=== PATIENT | female | born 1960 | race Caucasian/White ===

== ENCOUNTER 2018-05-24 11:11 | Emergency (ER) | payer OTHER, SELFPAY ==
[2018-05-24 11:57] LABS: Absolute Lymphocytes (CBC) 1.3 K/uL (0.7-4.9); Absolute Monocytes 0.5 K/uL (0.1-1.3); Absolute Neutrophil 4.6 K/uL (1.8-8.0); Basophils % 0.3 % (0-1.3); Eosinophils % 0.1 % (0-4.4); Hematocrit 35.8 % (36.0-45.0); Lymphocytes % 20.9 % (15.3-44.8); MCH 31.6 pg (27.0-35.0); MCV 93.1 fL (80-100); MPV 7.1 fL (7.6-11.3); Monocytes % 7.1 % (3.3-12.3); RBC Red Blood Cell Count 3.85 M/uL (3.86-4.86)
[2018-05-24 12:06] LABS: Protime INR 1.05
[2018-05-24] MEDS ORDERED: ONDANSETRON 4 MG (ODT) TAB ONE (12:10)
[2018-05-24] MEDS ORDERED: FAMOTIDINE 20 MG TAB ONE (12:10)
--- NOTE | 2018-05-24 12:48 | EKG ---
Test Date: 2018-05-24 Test Time: 12:10:59 Powder Coater: AYAN MEASUREMENT RESULTS: Intervals: Rate: 75 MA: 148 QRSD: 82 QT: 396 QTc: 442 Vulcan: P: 41 MA: 148 QRS: 61 T: 62 INTERPRETIVE STATEMENTS: Normal sinus rhythm with sinus arrhythmia Minimal voltage criteria for LVH, may be normal variant Borderline ECG No previous ECG available for comparison Electronically Signed On 05-24-18 12:47:14 SLIPMAN by Brayan Yi
[2018-05-24 12:49] LABS: ALT/SGPT 19 U/L (12-78); AST/SGOT 20 U/L (15-37); Albumin 3.7 g/dL (3.4-5.0); Alkaline Phosphatase 82 U/L (45-117); BUN Blood Urea Nitrogen 10 mg/dL (7-18); Bicarbonate 26 mmol/L (21-32); Bilirubin Direct 0.2 mg/dL (0-0.2); Bilirubin Total 0.6 mg/dL (0.2-1.0); Glucose Level 97 mg/dL (74-106); Lipase 79 U/L (73-393); Magnesium 1.8 mg/dL (1.8-2.4); Potassium 3.7 mmol/L (3.5-5.1); Protein, Total 6.9 g/dL (6.4-8.2); Sodium Level 142 mmol/L (136-145); Troponin I < 0.02 ng/mL (0.0-0.045)
--- NOTE | 2018-05-24 13:43 | ER ---
Nurse's Notes [facility] Name: Maria Victoria Justin Age: 58 yrs Sex: Female : 1960 Arrival Date: 05/24/2018 Time: 11:15 Bed 8 Private MD: Diagnosis: Nausea and vomiting;Adverse effect of other synthetic narcotics Presentation: 05/24 11:15 Presenting complaint: Patient states: " I took a bunch of pills last night in the [facility]. aj1 I had some Delta and tramadol, I threw up this morning and I hurt real bad and I feel weird. I don't know how much it was, but it was a handful." Patient reports abdominal pain and headache. States that she took these pills last night before she went to bed, but then was throwing up all night. Transition of care: patient was not received from another setting of care. Onset of symptoms was May 24, 2018. Risk Assessment: Do you want to hurt yourself or someone else? Patient reports no desire to harm self or others. Initial Sepsis Screen: Does the patient meet any 2 criteria? No. Patient's initial sepsis screen is negative. Does the patient have a suspected source of infection? No. Patient's initial sepsis screen is negative. Care prior to arrival: None. 11:15 Method Of Arrival: Law Enforcement aj1 11:15 Acuity: KISHAN 3 aj1 Triage Assessment: 11:25 General: Appears in no apparent distress. comfortable, Behavior is calm, cooperative, aj1 appropriate for age. Pain: Complains of pain in abdomen Pain currently is 6 out of 10 on a pain scale. Historical: - Allergies: 11:23 TETRACYCLINES; aj1 - Home Meds: 11:23 duloxetine oral oral [Active]; Trazodone Oral [Active]; Xanax Oral [Active]; Adderall aj1 XR Oral [Active]; Tramadol Oral [Active]; - PMHx: 11:23 PTSD; Bipolar disorder; Depression; aj1 - PSHx: 11:23 None; aj1 - Immunization history:: Flu vaccine is not up to date. - Social history:: Smoking status: Patient/guardian denies using tobacco. - Ebola Screening: : Patient denies travel to an Ebola-affected area in the 21 days before illness onset. Screenin:25 Abuse screen: Denies threats or abuse. Denies injuries from another. Nutritional aj1 screening: No deficits noted. Tuberculosis screening: No symptoms or risk factors identified. 14:21 Fall Risk None identified. aj1 Assessment: 11:25 General: Appears in no apparent distress. comfortable, Behavior is calm, cooperative, aj1 appropriate for age. Pain: Complains of pain in abdomen diffusely Pain does not radiate. Pain currently is 6 out of 10 on a pain scale. Quality of pain is described as aching, Pain began 1 day ago. Is continuous. Neuro: Level of Consciousness is awake, alert, obeys commands, Oriented to person, place, time, situation, Moves all extremities. Full function Speech is normal, Facial symmetry appears normal. Cardiovascular: Patient's skin is warm and dry. Respiratory: Airway is patent Respiratory effort is even, unlabored, Respiratory pattern is regular, symmetrical. GI: Abdomen is flat, non-distended, Bowel sounds present X 4 quads. Abd is soft and non tender X 4 quads. Reports lower abdominal pain, upper abdominal pain, nausea, vomiting. : No signs and/or symptoms were reported regarding the genitourinary system. EENT: No signs and/or symptoms were reported regarding the EENT system. Derm: No signs and/or symptoms reported regarding the dermatologic system. Skin is pink, warm \\T\\ dry. normal. Musculoskeletal: No signs and/or symptoms reported regarding the musculoskeletal system. Circulation, motion, and sensation intact. 12:00 Reassessment: Patient requests getting blood results back before attempting another IV aj1 stick. Notified CATHY Martinez. Order received to hold IV start, and give oral medications at this time. 12:33 Reassessment: Patient appears in no apparent distress at this time. No changes from aj1 previously documented assessment. Patient and/or family updated on plan of care and expected duration. Pain level reassessed. Patient is alert, oriented x 3, equal unlabored respirations, skin warm/dry/pink. 13:30 Reassessment: Patient appears in no apparent distress at this time. No changes from aj1 previously documented assessment. Patient and/or family updated on plan of care and expected duration. Pain level reassessed. Patient is alert, oriented x 3, equal unlabored respirations, skin warm/dry/pink. 14:20 Reassessment: Patient appears in no apparent distress at this time. No changes from aj1 previously documented assessment. Patient and/or family updated on plan of care and expected duration. Pain level reassessed. Patient is alert, oriented x 3, equal unlabored respirations, skin warm/dry/pink. Vital Signs: 11:25 BP 133 / 93; Pulse 88; Resp 18; Temp 98.7; Pulse Ox 99% on R/A; Weight 49.9 kg (R); aj1 Height 4 ft. 11 in. (149.86 cm) (R); Pain 6/10; 12:33 BP 126 / 80; Pulse 83; Resp 16; Pulse Ox 99% on R/A; aj1 13:30 BP 125 / 72; Pulse 75; Resp 16; Pulse Ox 100% on R/A; aj1 14:20 BP 116 / 82; Pulse 85; Resp 18; Pulse Ox 97% on R/A; aj1 11:25 Body Mass Index 22.22 (49.90 kg, 149.86 cm) aj1 ED Course: 11:15 Patient arrived in ED. aj1 11:17 Triage completed. aj1 11:20 Robert Nunez PA is PHCP. cp 11:20 Robert Luevano MD is Attending Physician. cp 11:21 Keyanna Uriostegui, HENNA is Primary Nurse. aj1 11:25 Arm band placed on Patient placed in an exam room, Patient Patient triaged in bed 8. aj1 11:25 Patient has correct armband on for positive identification. Bed in low position. Call aj1 light in reach. Side rails up X 1. PD at bedside. 11:25 No provider procedures requiring assistance completed. aj1 11:50 Initial lab(s) drawn, by tn, sent to lab. Missed attempt(s): 22 gauge in left jb1 antecubital area. 11:55 Missed attempt(s): 22 gauge in right forearm. Bleeding controlled, band aid applied, aj1 catheter tip intact. 12:00 Missed attempt(s): 22 gauge in right forearm. Bleeding controlled, band aid applied, aj1 catheter tip intact. 12:22 EKG done, by lead principal technical architect. reviewed by Robert MORGAN. at1 14:21 Patient did not have IV access during this emergency room visit. aj1 Administered Medications: 11:59 CANCELLED (Physician Discretion): Zofran 4 mg IVP once; over 2 minutes cp 11:59 CANCELLED (Physician Discretion): Pepcid 20 mg IVP once cp 12:06 Drug: Pepcid 20 mg Route: PO; aj1 14:19 Follow up: Response: No adverse reaction aj1 12:06 Drug: Zofran 4 mg Route: PO; aj1 14:19 Follow up: Response: No adverse reaction aj1 14:19 Not Given (Physician Discretion): NS 0.9% 500 ml IV at bolus once aj1 Outcome: 13:42 Discharge ordered by MD. cp 14:21 Discharged to Law Enforcement aj1 14:21 Condition: good 14:21 Discharge instructions given to patient, Instructed on discharge instructions, follow up and referral plans. Demonstrated understanding of instructions, follow-up care. 14:21 Patient left the ED. aj1 Signatures: Rivas Flores jb1 Keyanna Uriostegui RN RN aj1 Karma Rosenthal, ground instructor basic EKG Tat1 Robert Nunez PA PA cp
--- NOTE | 2018-05-24 13:43 | EDPHYS ---
Physician Documentation [facility] Name: Maria Victoria Justin Age: 58 yrs Sex: Female : 1960 Arrival Date: 05/24/2018 Time: 11:15 Bed 8 Private MD: ED Physician Robert Luevano HPI: 05/24 11:28 This 58 yrs old Female presents to ER via Law Enforcement with complaints of cp nausea/vomiting. 11:28 The patient presents to the emergency department after a known overdose, a result of cp recreational substance abuse. Context: Method: the patient has a confirmed or suspected ingestion, of narcotics, Time: last night, Extent: it is unknown what amount the patient ingested, handful, the OD/poisoning occurred at [facility], and was witnessed no one. 11:28 Associated signs and symptoms: Pertinent positives: nausea, vomiting, headache, cp Pertinent negatives: decreased level of consciousness, diarrhea. Severity of symptoms: in the emergency department the symptoms are unchanged. Historical: - Allergies: 11:23 TETRACYCLINES; aj1 - Home Meds: 11:23 duloxetine oral oral [Active]; Trazodone Oral [Active]; Xanax Oral [Active]; Adderall aj1 XR Oral [Active]; Tramadol Oral [Active]; - PMHx: 11:23 PTSD; Bipolar disorder; Depression; aj1 - PSHx: 11:23 None; aj1 - Immunization history:: Flu vaccine is not up to date. - Social history:: Smoking status: Patient/guardian denies using tobacco. - Ebola Screening: : Patient denies travel to an Ebola-affected area in the 21 days before illness onset. ROS: 11:30 Constitutional: Negative for body aches, chills, fever, poor PO intake. cp 11:30 Eyes: Negative for injury, pain, redness, and discharge. cp 11:30 ENT: Negative for drainage from ear(s), ear pain, sore throat, difficulty swallowing, difficulty handling secretions. 11:30 Cardiovascular: Negative for chest pain, edema, palpitations. 11:30 Respiratory: Negative for cough, shortness of breath, wheezing. 11:30 Abdomen/GI: Positive for abdominal pain, nausea, vomiting, Negative for diarrhea, constipation, black/tarry stool, rectal bleeding. 11:30 Skin: Negative for cellulitis, rash. 11:30 Neuro: Positive for headache. 11:30 Psych: Negative for suicide gesture, suicidal ideation. cp 11:30 All other systems are negative. cp Exam: 11:35 Constitutional: The patient appears in no acute distress, alert, awake, cp non-diaphoretic, non-toxic, well developed, well nourished. 11:35 Head/Face: Normocephalic, atraumatic. Eyes: Pupils equal round and reactive to light, cp extra-ocular motions intact. Lids and lashes normal. Conjunctiva and sclera are non-icteric and not injected. Cornea within normal limits. Periorbital areas with no swelling, redness, or edema. ENT: Nares patent. No nasal discharge, no septal abnormalities noted. Tympanic membranes are normal and external auditory canals are clear. Oropharynx with no redness, swelling, or masses, exudates, or evidence of obstruction, uvula midline. Mucous membranes moist. Chest/axilla: Normal chest wall appearance and motion. Nontender with no deformity. No lesions are appreciated. Cardiovascular: Regular rate and rhythm with a normal S1 and S2. No gallops, murmurs, or rubs. Normal PMI, no JVD. No pulse deficits. Respiratory: Lungs have equal breath sounds bilaterally, clear to auscultation and percussion. No rales, rhonchi or wheezes noted. No increased work of breathing, no retractions or nasal flaring. 11:35 Abdomen/GI: Inspection: abdomen appears normal, Bowel sounds: active, all quadrants, Palpation: soft, in all quadrants, mild abdominal tenderness, in all quadrants, rebound tenderness, is not appreciated, voluntary guarding, is not appreciated, involuntary guarding, is not appreciated. 11:35 Back: pain, is absent, ROM is normal. 11:35 Skin: cellulitis, is not appreciated, no rash present. 11:35 Neuro: Orientation: to person, place \T\ time. Mentation: is normal, Cerebellar function: is grossly normal, Motor: is normal, Sensation: is normal. 11:35 Psych: Affect is calm, Patient has no thoughts/intents to harm self or others. Judgement / Insight is normal. 12:18 ECG was reviewed by the Attending Physician. cp Vital Signs: 11:25 BP 133 / 93; Pulse 88; Resp 18; Temp 98.7; Pulse Ox 99% on R/A; Weight 49.9 kg (R); aj1 Height 4 ft. 11 in. (149.86 cm) (R); Pain 6/10; 12:33 BP 126 / 80; Pulse 83; Resp 16; Pulse Ox 99% on R/A; aj1 13:30 BP 125 / 72; Pulse 75; Resp 16; Pulse Ox 100% on R/A; aj1 14:20 BP 116 / 82; Pulse 85; Resp 18; Pulse Ox 97% on R/A; aj1 11:25 Body Mass Index 22.22 (49.90 kg, 149.86 cm) aj1 MDM: 11:20 Patient medically screened. cp 12:00 Differential diagnosis: over medication, overdose, suicide attempt. cp 13:40 Data reviewed: vital signs, nurses notes, lab test result(s), EKG, and as a result, I cp will discharge patient. 13:40 Test interpretation: by ED physician or midlevel provider: ECG. Counseling: I had a cp detailed discussion with the patient and/or guardian regarding: the historical points, exam findings, and any diagnostic results supporting the discharge/admit diagnosis, lab results, to return to the emergency department if symptoms worsen or persist or if there are any questions or concerns that arise at home. ED course: VSS. No vomiting observed in ED. Will discharge into custody of law enforcement for continued monitoring. 05/24 11:25 Order name: Basic Metabolic Panel; Complete Time: 12:54 cp 05/24 12:54 Interpretation: Normal except: CL 111. cp 05/24 11:25 Order name: CBC with Diff; Complete Time: 11:58 cp 05/24 11:58 Interpretation: Normal except: RBC 3.85; HCT 35.8; MPV 7.1. cp 05/24 11:25 Order name: Creatinine for Radiology; Complete Time: 12:32 cp 05/24 11:25 Order name: Hepatic Function; Complete Time: 12:54 cp 05/24 11:25 Order name: Lipase; Complete Time: 12:54 cp 05/24 11:25 Order name: Magnesium; Complete Time: 12:54 cp 05/24 11:25 Order name: Troponin I; Complete Time: 12:54 cp 05/24 12:55 Interpretation: Reviewed. 05/24 11:25 Order name: Tylenol Level; Complete Time: 12:54 cp 05/24 12:54 Interpretation: Reviewed. cp 05/24 11:25 Order name: UDS cp 05/24 11:25 Order name: Ptt, Activated; Complete Time: 12:32 cp 05/24 11:25 Order name: PT-INR; Complete Time: 12:32 cp 05/24 11:25 Order name: Salicylate; Complete Time: 12:54 cp 05/24 11:25 Order name: Labs collected and sent; Complete Time: 11:50 cp 05/24 11:25 Order name: EKG; Complete Time: 11:27 cp 05/24 11:25 Order name: EKG - Nurse/Tech; Complete Time: 12:46 cp 05/24 12:55 Order name: PO challenge; Complete Time: 14:19 cp EC:18 Rate is 75 beats/min. Rhythm is regular. NC interval is normal. QRS interval is normal. cp QT interval is normal. T waves are Flattened in lead aVL. Interpreted by me. Reviewed by me. Administered Medications: 11:59 CANCELLED (Physician Discretion): Zofran 4 mg IVP once; over 2 minutes cp 11:59 CANCELLED (Physician Discretion): Pepcid 20 mg IVP once cp 12:06 Drug: Pepcid 20 mg Route: PO; aj1 14:19 Follow up: Response: No adverse reaction aj1 12:06 Drug: Zofran 4 mg Route: PO; aj1 14:19 Follow up: Response: No adverse reaction aj1 14:19 Not Given (Physician Discretion): NS 0.9% 500 ml IV at bolus once aj1 Disposition: 16:16 Co-signature as Attending Physician, Robert Luevano MD I agree with the assessment and ronna plan of care. Disposition: 05/24/18 13:42 Discharged to Law Enforcement. Impression: Nausea and vomiting, Adverse effect of other synthetic narcotics. - Condition is Stable. - Discharge Instructions: Opioid Overdose, Nausea and Vomiting, Adult. - Medication Reconciliation Form, Thank You Letter, Antibiotic Education, Prescription Opioid Use form. - Follow up: Private Physician; When: 2 - 3 days; Reason: Recheck today's complaints. - Problem is new. - Symptoms have improved. Signatures: Dispatcher MedHoNew Sunrise Regional Treatment CenterKeyanna Martino RN RN aj1 Anderson, Corey, MD MD cha Page, Robert, PA PA cp Corrections: (The following items were deleted from the chart) 11:59 11:25 Zofran 4 mg IVP once; over 2 minutes ordered. cp cp 11:59 11:25 Pepcid 20 mg IVP once ordered. cp cp 14:21 13:42 05/24/2018 13:42 Discharged to Law Enforcement. Impression: Nausea and vomiting; aj1 Adverse effect of other synthetic narcotics. Condition is Stable. Forms are Medication Reconciliation Form, Thank You Letter, Antibiotic Education, Prescription Opioid Use. Follow up: Private Physician; When: 2 - 3 days; Reason: Recheck today's complaints. Problem is new. Symptoms have improved. cp 05/25 08:20 05/24 11:30 All other systems are negative, cp cp
[2018-05-24 15:30] LABS: Barbiturates NEGATIVE (NEGATIVE); Benzodiazepines NEGATIVE (NEGATIVE); Cocaine NEGATIVE (NEGATIVE); METHAMPHETAM NEGATIVE (NEGATIVE); Methadone NEGATIVE (NEGATIVE); Opiates NEGATIVE (NEGATIVE); Phencyclidine NEGATIVE (NEGATIVE); THC Cannibis POSITIVE (NEGATIVE)
== END 2018-05-24 14:21 ==
LOC: ER 11:11
DX: T40.4X2A Poisoning by other synthetic narcotics, intentional self-harm, initial encounter (principal); Y92.143 Cell of prison as the place of occurrence of the external cause; F43.10 Post-traumatic stress disorder, unspecified; F31.9 Bipolar disorder, unspecified; F32.9 Major depressive disorder, single episode, unspecified; Z88.1 Allergy status to other antibiotic agents
CPT/HCPCS: 36415; 80048; 80076; 80307; 80329; 83690; 83735; 84484; 85025; 85610; 85730; 93005; 99284

== ENCOUNTER 2022-05-30 11:30 | Emergency (ER) | payer OTHER ==
--- OUTSIDE RECORDS SUMMARY | 2022-05-30 11:33 | XMS REPORT | Continuity of Care Document ---
:1960 Author Organization [facility] t Address [address] [place] [address] Care Team Providers Name Role Phone Mitch Richter Attending Clinician Unavailable Gabriela Sosa Attending Clinician Unavailable Raju_Miller Attending Clinician Unavailable Jluis Bae Admitting Clinician Unavailable Raju_P Admitting Clinician Unavailable Payers Payer Name Policy Type Policy Number Effective Date Expiration Date S [facility] [id number] 2013 [facility] - 00:00:00 STAR (MEDICAID HMO) Problems This patient has no known problems. Allergies, Adverse Reactions, Alerts This patient has no known allergies or adverse reactions. Medications This patient has no known medications. Procedures This patient has no known procedures. Encounters Start End Encounter Admission Attending Care Care Encounter Source Date/Time Date/Time Type Type Clinicians Facility Department ID 2021-02-28 2021-02-28 Emergency ER AMINA Richter [facility] [id number] 15:13:00 16:35:00 Mitch -[id number] Michi Saravia 2020-12-27 2020-12-27 Inpatient ER JEAN Sosa MED [id number] JEAN 11:19:00 17:27:00 Gabriela [id number] 2020-04-28 2020-04-28 Outpatient Raju_P [facility] [id number] [place] 02:21:00 02:21:00 [facility] Results Test Description Test Time Test Comments Results Result Comments Source Molecular Testing 2021-03-01 08:50:00 Test Item Value Reference Range Interpretation Comme nts Molecular Testing MM DETECTED NotDetected AA The use of this assay as an (test code = In vitro diagno stic under COVIDNAAT) theFDA Emergenc y Use Authorization ( EUA) is limited tolabor atories that are certified u nder the [facility] ndments of 1987 (CLIA), 42 U.S.C.263a, to perform high complexity tests. Molecular Testing MM Nasopharyngeal Swab (test code = COVIDSOURCEMM) Resident in [facility] Care Setting: UnknownEmployed in Healthcare: UnknownFirst Test: UnknownHospitalized: NoICU: NoDate of Symptom Onset: [id number]: UnknownReason for Testing: PUI -SymptomaticSource: Nasopharyngeal SwabSymptomatic as defined by CDC: UnknownXR Chest 1 View Portable Name: ALEX GEORGE : 1960 Sex: [facility] Pt Name: ALEX GEORGE [address] [facility] Phys: [place] [address] : 1960 Age: 60 SEX:F Exam Date: 12/27/20 Status: REG ER Acct: [id number]: EV Pt Unit #: [id number] Report #: [id number] CC: Raj Webster MD IMAGING SERVICES REPORT Order # Category/Exam [id number] RAD/XR Chest 1 View Portable ([id number]): . Results EXAM: Singleview of the chest HISTORY: Chest pain COMPARISON: None FINDINGS: Single view of the chest shows a normal sized cardiomediastinal silhouette. There is no evidence of consolidation, mass, or pleural effusion. No acute osseous abnormality. IMPRESSION: No evidence of acute cardiopulmonary disease ReportedBy: Andres Slaughter Electronically Signed: 12/27/2020 10:17 AM Reported By: Andres Slaughter MD Electronically Signed Date/Time: 12/27/20 1017 Technologist: GISELA Dictated Date/Time: 12/27/20 1016 Transcribed Date/Time:
--- NOTE | 2022-05-30 12:06 | RAD REPORT ---
[facility] CLINICAL HISTORY: Cough COMPARISON: none FINDINGS: Area scarring or subsegmental atelectasis left lung base. The remainder of the lungs appear clear of acute infiltrate. The heart is normal size
[2022-05-30 12:28] LABS: SARS-COV-2 RT PCR NEGATIVE (NEGATIVE)
--- NOTE | 2022-05-30 12:33 | EDPHYS ---
Physician Documentation [facility] Name: Maria Victoria Justin Age: 62 yrs Sex: Female : 1960 Arrival Date: 05/30/2022 Time: 11:33 Bed IW2 Private MD: ED Physician Ryder Bowers HPI: 05/30 11:45 This 62 yrs old Female presents to ER via Ambulatory with complaints of Cold Symptoms. jh7 11:45 Onset: The symptoms/episode began/occurred 10 day(s) ago. Associated signs and jh7 symptoms: Pertinent positives: congestion, cough, nasal discharge, Pertinent negatives: abdominal pain, chest pain, shortness of breath, sore throat, vomiting, wheezing. Patient reports that she was unable to come in initially due to not having a ride. Reports that she needs a negative COVID test to go back to work.. Historical: - Allergies: 11:41 TETRACYCLINES; jl7 - Home Meds: 11:41 None [Active]; jl7 - PMHx: 11:41 Bipolar disorder; Depression; PTSD; jl7 - PSHx: 11:41 None; jl7 - Immunization history:: Client reports having NOT received the Covid vaccine. - Social history:: Smoking status: Patient denies any tobacco usage or history of. ROS: 11:45 Constitutional: Negative for fever, chills, and weight loss, Eyes: Negative for injury, jh7 pain, redness, and discharge, Neck: Negative for injury, pain, and swelling, Cardiovascular: Negative for chest pain, palpitations, and edema, Abdomen/GI: Negative for abdominal pain, nausea, vomiting, diarrhea, and constipation, MS/Extremity: Negative for injury and deformity, Skin: Negative for injury, rash, and discoloration, Neuro: Negative for headache, weakness, numbness, tingling, and seizure. 11:45 ENT: Positive for nasal discharge, Negative for sinus pain, sore throat. 11:45 Respiratory: Positive for cough, Negative for shortness of breath, wheezing. 11:45 All other systems are negative. Exam: 11:45 Constitutional: This is a well developed, well nourished patient who is awake, alert, jh7 and in no acute distress. Head/Face: Normocephalic, atraumatic. Eyes: Pupils equal round and reactive to light, extra-ocular motions intact. Lids and lashes normal. Conjunctiva and sclera are non-icteric and not injected. Cornea within normal limits. Periorbital areas with no swelling, redness, or edema. Neck: Trachea midline, no thyromegaly or masses palpated, and no cervical lymphadenopathy. Supple, full range of motion without nuchal rigidity, or vertebral point tenderness. No Meningismus. Cardiovascular: Regular rate and rhythm with a normal S1 and S2. No gallops, murmurs, or rubs. Normal PMI, no JVD. No pulse deficits. Respiratory: Lungs have equal breath sounds bilaterally, clear to auscultation and percussion. No rales, rhonchi or wheezes noted. No increased work of breathing, no retractions or nasal flaring. Abdomen/GI: Soft, non-tender, with normal bowel sounds. No distension or tympany. No guarding or rebound. No evidence of tenderness throughout. Skin: Warm, dry with normal turgor. Normal color with no rashes, no lesions, and no evidence of cellulitis. MS/ Extremity: Pulses equal, no cyanosis. Neurovascular intact. Full, normal range of motion. Neuro: Awake and alert, GCS 15, oriented to person, place, time, and situation. Motor strength 5/5 in all extremities. Sensory grossly intact. Normal gait. 11:45 ENT: TM's: are normal, Posterior pharynx: post nasal drainage. 11:45 Respiratory: the patient does not display signs of respiratory distress, Respirations: normal, Breath sounds: are clear throughout, Respiratory rate: 18 Hacking cough noted on exam. Vital Signs: 11:40 BP 141 / 101; Pulse 92; Resp 19; Temp 97.3; Pulse Ox 100% ; Weight 54.43 kg; Height 4 jl7 ft. 11 in. (149.86 cm); Pain 0/10; 11:40 Body Mass Index 24.24 (54.43 kg, 149.86 cm) 7 MDM: 11:35 Patient medically screened. [facility] 12:35 Differential diagnosis: viral Infection, bacterial infection, URI, bronchitis, jh7 pneumonia. Data reviewed: vital signs, nurses notes, radiologic studies, plain films. Data interpreted: Pulse oximetry: is 100 %. Interpretation: normal. Counseling: I had a detailed discussion with the patient and/or guardian regarding: the historical points, exam findings, and any diagnostic results supporting the discharge/admit diagnosis, to return to the emergency department if symptoms worsen or persist or if there are any questions or concerns that arise at home. 05/30 11:41 Order name: COVID-19/FLU A+B; Complete Time: 12:30 jh7 05/30 11:41 Order name: XRAY Chest (1 view); Complete Time: 12:19 jh7 Administered Medications: No medications were administered Disposition: 12:51 Co-signature as Attending Physician, Ryder Bowers DO I was immediately available onsite ms3 in the emergency department for consultation in the care of the patient. Disposition Summary: 05/30/22 12:33 Discharge Ordered Location: Home [facility] Problem: new [facility] Symptoms: are unchanged [facility] Condition: Stable [facility] Diagnosis - Acute upper respiratory infection, unspecified [facility] Followup: [facility] - With: Private Physician - When: 2 - 3 days - Reason: Recheck today's complaints Discharge Instructions: - Discharge Summary Sheet [facility] - Upper Respiratory Infection, Adult [facility] - Viral Respiratory Infection [facility] Forms: - Medication Reconciliation Form [facility] - Thank You Letter [facility] Prescriptions: - Bromfed DM 2-30-10 mg/5 mL Oral syrup - take 10 milliliter by ORAL route every 4 hours As needed; 240 milliliter; [facility] Refills: 0, Product Selection Permitted - ProAir HFA 90 mcg/actuation Inhalation HFA aerosol inhaler - inhale 2 puff by INHALATION route every 4-6 hours As needed; 1 Inhaler; [facility] Refills: 0, Product Selection Permitted Signatures: Dispatcher [employer] Francisco Horenr, RN RN jl7 Ryder Bowers DO DO ms3 Pamela Westbrook, CORPORATE DEVELOPMENT OFFICER CORPORATE DEVELOPMENT OFFICER [facility]
--- NOTE | 2022-05-30 12:33 | ER ---
Nurse's Notes [facility] Name: Maria Victoria Justin Age: 62 yrs Sex: Female : 1960 Arrival Date: 05/30/2022 Time: 11:33 Bed IW2 Private MD: Diagnosis: Acute upper respiratory infection, unspecified Presentation: 05/30 11:40 Chief complaint: Patient states: Cough, congestion, fever, x 2 weeks, starting to feel jl7 better. Coronavirus screen: Vaccine status: Patient reports being unvaccinated. congestion, cough unrelated to allergies. Ebola Screen: No symptoms or risks identified at this time. Initial Sepsis Screen: Does the patient meet any 2 criteria? No. Patient's initial sepsis screen is negative. Does the patient have a suspected source of infection? No. Patient's initial sepsis screen is negative. Risk Assessment: Do you want to hurt yourself or someone else? Patient reports no desire to harm self or others. Onset of symptoms was May 17, 2022. 11:40 Method Of Arrival: Ambulatory jl7 11:40 Acuity: KISHAN 4 jl7 Triage Assessment: 11:41 General: Appears in no apparent distress. uncomfortable, Behavior is calm, cooperative, jl7 appropriate for age. Pain: Denies pain. Historical: - Allergies: 11:41 TETRACYCLINES; jl7 - Home Meds: 11:41 None [Active]; jl7 - PMHx: 11:41 Bipolar disorder; Depression; PTSD; jl7 - PSHx: 11:41 None; jl7 - Immunization history:: Client reports having NOT received the Covid vaccine. - Social history:: Smoking status: Patient denies any tobacco usage or history of. Screenin:50 [facility] ED Fall Risk Assessment (Adult) History of falling in the last 3 months, jl7 including since admission No falls in past 3 months (0 pts) Confusion or Disorientation No (0 pts) Intoxicated or Sedated No (0 pts) Impaired Gait No (0 pts) Mobility Assist Device Used No (0 pt) Altered Elimination No (0 pt) Score/Fall Risk Level 0 - 2 = Low Risk Oriented to surroundings. Humpty Dumpty Scale Fall Assessment Tool (age< 18yrs) Gender Female (1 pt). Abuse screen: Denies threats or abuse. Denies injuries from another. Nutritional screening: No deficits noted. Tuberculosis screening: No symptoms or risk factors identified. Fall Risk No fall in past 12 months (0 pts). Vital Signs: 11:40 BP 141 / 101; Pulse 92; Resp 19; Temp 97.3; Pulse Ox 100% ; Weight 54.43 kg; Height 4 7 ft. 11 in. (149.86 cm); Pain 0/10; 11:40 Body Mass Index 24.24 (54.43 kg, 149.86 cm) 7 ED Course: 11:33 Patient arrived in ED. as 11:35 Pamela Westbrook FNP [facility] 7 11:35 Ryder Bowers DO is Attending Physician. 7 11:41 Triage completed. jl7 11:41 Arm band placed on right wrist. jl7 11:47 COVID swab sent to lab. Flu and/or RSV swab sent to lab. jl7 12:03 XRAY Chest (1 view) In Process Unspecified. EDMS 12:11 Francisco Stewart, RN is Primary Nurse. 7 12:50 Patient has correct armband on for positive identification. jl7 12:50 No provider procedures requiring assistance completed. Patient did not have IV access jl7 during this emergency room visit. Administered Medications: No medications were administered Medication: 12:50 VIS not applicable for this client. 7 Outcome: 12:33 Discharge ordered by . 7 12:50 Discharged to home ambulatory. jl7 12:50 Condition: stable 12:50 Discharge instructions given to patient, Instructed on discharge instructions, follow up and referral plans. medication usage, Demonstrated understanding of instructions, follow-up care, medications, Prescriptions given X 2. 12:52 Patient left the ED. 7 Signatures: Dispatcher [employer] EDMS Yesenia Cordova Jahala, RN RN 7 Pamela Westbrook FNP FNP [facility]
[2022-05-30 13:03] VITALS: BP 141/101; TEMP 97.3; O2SAT 100
== END 2022-05-30 12:52 | disposition home or self-care (01) ==
LOC: ER 11:30
DX: J06.9 Acute upper respiratory infection, unspecified (principal); Z20.822 Contact with and (suspected) exposure to COVID-19; Z88.1 Allergy status to other antibiotic agents
CPT/HCPCS: 0240U; 71045; 99283